=== PATIENT | male | born 1950 | race Caucasian/White ===

== ENCOUNTER 2021-06-04 22:33 | Inpatient (IN) | payer OTHER ==
[~2021-06-04] VITALS: Ht 180.3 cm; Wt 110.0 kg
--- NOTE | ~2021-06-04 | EMS ---
[address] [address] EMS Patient Care Report Name: TREY WOOD Room #: 215-P ADM IN M.R.#: [id number] Admission: 06/05/21 Attend Phys: Ellyn Adams MD Discharge: Date of : 46 Report #: [id number] THIS REPORT FOR: //name// Report Transmitted: 06/06/2021 14:55 EMS Care Summary [facility] [place] [id number] @ 06/04/2021 21:26 Incident Location [address] [place] [id number] Patient TREY WOOD Male, 71 Years 1950 Patient Address [address] [place] [id number] Patient History Stroke/CVA,Atrial Fibrillation, Patient Allergies No known allergies, Patient Medications None Reported, Chief Complaint Shortness of breath Disposition Transported No Lights/[place] Dispatch Reason Breathing Problem Transported To [facility] Narrative MEDIC 52 DISPATCHED TO PRIVATE RESIDENCE FOR A 76 YO MALE COMPLAINING OF SHORTNESS OF BREATH. PT WAS FIRST SEEN AOX4 AND SITTING IN A CHAIR RECLINED. LEAH MCKOY WAS FIRST ON SCENE AND PLACED THE PATIENT ON A NEBULIZER MASK WELL OBTAINING VITAL SIGNS AND A 12 LEAD. LEAH MCKOY STATED THE PT'S SPO2 [address] [address] EMS Patient Care Report Name: TREY WOOD Room #: 215-P ADM IN M.R.#: [id number] Admission: 06/05/21 Attend Phys: Ellyn Adams MD Discharge: Date of : 46 Report #: [id number] WAS IN THE MID 80'S ON ROOM AIR AND CAME UP TO LOW 90'S ON 8LPM OF O2. PT HAD A PATENT AIRWAY, LABORED AND TACHYPNEIC, SKIN WAS DIAPHORETIC. PT WAS THEN TRANSFERRED FROM CHAIR TO COT W/O [facility]. PT WAS THEN LOADED INTO THE AMBULANCE. ON AUSCULTATION PT HAD INSPIRATORY AND EXPIRATORY WHEEZES, PT WAS GIVEN A DUONEB TREATMENT. AN 18 G IV WAS ATTEMPTED IN THE PT RIGHT AC. MY PARTNER HOOKED THE PATIENT UP TO THE MONITOR. VITAL SIGNS AND A 12 LEAD WERE OBTAINED. PT STATED THE DUONEB TREATMENT HELPED WITH HIS SHORTNESS OF BREATH BUT IT WAS STILL PRESENT. PT WAS THEN GIVEN AN ALBUTEROL TREATMENT. PT WAS CONTINUOUSLY MONITORED EN ROUTE TO [facility]. PT STATED THE HE COULD BREATHE THROUGH HIS NOSE FOR THE FIRST TIME SINCE THIS EPISODE BEGAN. JUST BEFORE ARRIVAL PT STATED HE WAS FEELING A LITTLE BIT OF WHEEZING COMING BACK. PT WAS THEN GIVEN ANOTHER ALBUTEROL TREATMENT. RADIO REPORT WAS THEN CALLED IN TO THE ED. UPON ARRIVAL THE NURSE WAS GIVEN THE REPORT. PT WAS THEN TRANSFERRED FROM COT TO BED W/O [facility]. PT CARE WAS THEN TRANSFERRED OVER TO THE NURSING STAFF. MEDIC 52 CLEAR Initial Vitals @21:55P: 150,SpO2: 99, @21:56P: 104,SpO2: 100, @22:10P: 111,R: 23,EtCO2: 33,SpO2: 94, @22:25P: 131,R: 42,EtCO2: 32,SpO2: 94, @22:20P: 146,R: 39,EtCO2: 35,SpO2: 98, @22:00P: 144,SpO2: 100, @22:15P: 158,R: 60,EtCO2: 41,SpO2: 95, @22:02MI Suspected: false @22:17P: 168,R: 39,BP: 127/96,Pain: 0/10,GCS: 15,EtCO2: 35,SpO2: 88,Revised Trauma: 11, @21:58P: 167,R: 30,BP: 124/80,Pain: 0/10,GCS: 15,SpO2: 100,Revised Trauma: 11, @22:19P: 91,R: 38,BP: 130/73,Pain: 0/10,GCS: 15,EtCO2: 35,SpO2: 92,Revised Trauma: 11, Impression Shortness of breath Procedures @22:02 12-Lead ECG Response: UnchangedSucceeded @21:45 ALS Assessment Response: UnchangedSucceeded @22:02 IV Therapy - Saline Lock cc (20 ga) Site: Antecubital-Right Response: UnchangedFailed @PTAOxygen FlowRate: 8 Device: Nebulizer Response: ImprovedSucceeded @21:58 General Comments Response: Improved @22:20 Albuterol - 2.5 Milligrams (mg) - Nebulized Response: Improved @22:08 Albuterol - 2.5 Milligrams (mg) - Nebulized Response: Improved [address] [address] EMS Patient Care Report Name: TREY WOOD Room #: 215-P ADM IN M.R.#: [id number] Admission: 06/05/21 Attend Phys: Ellyn Adams MD Discharge: Date of : 46 Report #: [id number] Timeline GRILL PREP COOK,Oxygen FlowRate: 8 Device: Nebulizer Response: ImprovedSucceeded, 21:25,Call Received 21:,Psap Call 21:,Dispatched 21:29,En Route 21:40,On Scene 21:41,At Patient 21:45,ALS Assessment,Response: UnchangedSucceeded, 21:55,BP: / M,PULSE: 150,RR: R,SPO2: 99 Ox,ETCO2: ,BG: ,PAIN: ,GCS: , 21:56,BP: / M,PULSE: 104,RR: R,SPO2: 100 Ox,ETCO2: ,BG: ,PAIN: ,GCS: , 21:58,General Comments,Response: Improved 21:58,BP: 124/80 M,PULSE: 167,RR: 30 R,SPO2: 100 Ox,ETCO2: ,BG: ,PAIN: 0,GCS: 15, 22:00,Depart Scene 22:00,BP: / M,PULSE: 144,RR: R,SPO2: 100 Ox,ETCO2: ,BG: ,PAIN: ,GCS: , 22:02,IV Therapy - Saline Lock cc 20 ga Site: Antecubital-Right,Response: UnchangedFailed, 22:02,12-Lead ECG,Response: UnchangedSucceeded, 22:02,BP: / M,PULSE: ,RR: R,SPO2: Ox,ETCO2: ,BG: ,PAIN: ,GCS: , 22:08,Albuterol - 2.5 Milligrams (mg) - Nebulized,Response: Improved 22:10,BP: / M,PULSE: 111,RR: 23 R,SPO2: 94 Ox,ETCO2: 33 ,BG: ,PAIN: ,GCS: , 22:15,BP: / M,PULSE: 158,RR: 60 R,SPO2: 95 Ox,ETCO2: 41 ,BG: ,PAIN: ,GCS: , 22:17,BP: 127/96 M,PULSE: 168,RR: 39 R,SPO2: 88 Ox,ETCO2: 35 ,BG: ,PAIN: 0,GCS: 15, 22:19,BP: 130/73 M,PULSE: 91,RR: 38 R,SPO2: 92 Ox,ETCO2: 35 ,BG: ,PAIN: 0,GCS: 15, 22:20,Albuterol - 2.5 Milligrams (mg) - Nebulized,Response: Improved 22:20,BP: / M,PULSE: 146,RR: 39 R,SPO2: 98 Ox,ETCO2: 35 ,BG: ,PAIN: ,GCS: , 22:25,BP: / M,PULSE: 131,RR: 42 R,SPO2: 94 Ox,ETCO2: 32 ,BG: ,PAIN: ,GCS: , 22:26,At Destination 22:42,Transfer Patient 23:06,Call Closed Disclaimer v1.1 Copyright 2020 [employer] This EMS Care Summary contains data elements from the applicable legal record (which may be displayed differently). It is designed to provide pertinent information for the following purposes: continuity of care, clinical quality, and state data reporting. The complete legal record is available to ED staff and administrators of the receiving hospital in [employer] Patient Tracker. All data is provided "as is."
[~2021-06-04 22:33] MED LIST: ADULT LOW DOSE81 MG PO; ASPIRIN; COLACE100 MG PO; FAMOTIDINE20 MG PO; LIPITOR10 MG PO; MULTIVITAMINS PO
[2021-06-04 22:34] VITALS: BP 85/50
[2021-06-04 23:18] LABS: ABSOLUTE NEUTROPHILS 11.8 thou/uL (1.4-8.2); BASOPHILS 0.6 % (0.0-2.0); EOSINOPHILS 0.6 % (0.0-3.0); HEMATOCRIT 32.6 % (42.0-52.0); LYMPHOCYTES 15.8 % (24.0-44.0); MCH 32.3 pg (26.0-34.0); MCHC 33.8 g/dL (28.0-37.0); MCV 95.5 fL (80.0-100.0); MONOCYTES 3.6 % (1.0-8.0); PLATELET COUNT 293 thou/uL (150-400); POLYS 79.4 % (36.0-66.0); RBC 3.41 mil/uL (4.50-6.00); RDW 15.5 % (10.5-14.5); WBC 14.8 thou/uL (4.0-11.0)
[2021-06-04 23:33] LABS: CALCIUM 8.1 mg/dL (8.5-10.1); CREATININE 1.1 mg/dL (0.7-1.3); POTASSIUM 4.1 mmol/L (3.5-5.1)
[2021-06-04 23:43] LABS: ALBUMIN 2.5 g/dL (3.4-5.0); TOTAL BILIRUBIN 0.5 mg/dL (0.2-1.0); TOTAL PROTEIN 5.9 g/dL (6.4-8.2)
[2021-06-05 03:55] LABS: URINE BILIRUBIN NEGATIVE (Negative); URINE BLOOD 3+ (Negative); URINE CLARITY CLEAR; URINE COLOR YELLOW; URINE GLUCOSE-RANDOM* NEGATIVE (Negative); URINE KETONES NEGATIVE (Negative); URINE LEUKOCYTES-REFLEX NEGATIVE (Negative); URINE NITRITE-REFLEX NEGATIVE (Negative); URINE PROTEIN (DIPSTICK) 2+ (Negative); URINE SPECIFIC GRAVITY >= 1.030 (1.005-1.035); URINE UROBILINOGEN 0.2 E.U./dl (0.2-1.0)
[2021-06-05 03:58] VITALS: BP 94/60
[2021-06-05 04:13] LABS: BACTERIA-REFLEX None Seen /HPF (None Seen); CRYSTALS None Seen /LPF (None Seen); HYALINE CASTS 0-3 Few /LPF (None Seen); MUCUS 0-3 Light strn/LPF (None Seen); SQUAMOUS None Seen /LPF (0-3); TRANSITIONAL EPITHEL CELL 0-3 Few /LPF (None Seen); URINE RBC 3-10 Few /HPF (NONE SEEN); URINE WBC-REFLEX None Seen /HPF (0-5)
[2021-06-05 09:07] VITALS: BP 131/91
[2021-06-05 14:45] LABS: BE(vivo) -5.1 mmol/L (-2 to +3); HCO3 22.3 mmol/L (22.0-26.0); PCO2 51.7 mmHg (35.0-45.0); PO2 89.9 mmHg (80.0-100.0); pH 7.252 (7.360-7.450); sO2 95.5 % (92.0-98.0)
--- NOTE | 2021-06-05 14:53 | NUR ---
ATTEMPTED TO CALL HOSPITALIST FOR CRITICAL ABG RESULTS, NO ANSWER
[2021-06-05 15:39] VITALS: BP 131/91
[2021-06-05 17:13] VITALS: BP 116/80
[2021-06-05 18:06] LABS: BE(vivo) -3.4 mmol/L (-2 to +3); PCO2 40.6 mmHg (35.0-45.0); pH 7.351 (7.360-7.450); sO2 99.3 % (92.0-98.0)
[2021-06-05 21:03] VITALS: BP 114/58
[2021-06-06 00:25] LABS: HEMATOCRIT 29.2 % (42.0-52.0); HEMOGLOBIN 9.6 gm/dL (14.0-18.0); MCH 30.8 pg (26.0-34.0); MCHC 32.9 g/dL (28.0-37.0); MCV 93.8 fL (80.0-100.0); RBC 3.11 mil/uL (4.50-6.00); RDW 15.4 % (10.5-14.5); WBC 9.6 thou/uL (4.0-11.0)
[2021-06-06 00:45] VITALS: BP 97/60
[2021-06-06 00:48] LABS: CALCIUM 8.1 mg/dL (8.5-10.1); CREATININE 0.9 mg/dL (0.7-1.3); POTASSIUM 4.3 mmol/L (3.5-5.1)
[2021-06-06 04:27] VITALS: BP 98/64
[2021-06-06 07:00] VITALS: BP 101/63
--- NOTE | 2021-06-06 07:27 | EKG ---
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1950 Requested By: Scarlet Rashid Order Number: [id number] MD: Abad Mckoy Measurements Intervals [place] Rate: 151 P: GA: QRS: 49 QRSD: 80 T: 13 QT: 313 QTc: 497 Interpretive Statements Atrial fibrillation with rapid V-rate Low voltage, precordial leads Anteroseptal infarct, old Baseline wander in lead(s) V2 Compared to ECG 12/14/2009 15:43:08 Low QRS voltage now present Myocardial infarct finding now present Sinus rhythm no longer present Electronically Signed On 06-06-2021 7:26:57 CARDIOPULMONARY SUPERVISOR by Abad Mckoy [email or web address] <ELECTRONICALLY SIGNED> By: Abad Mckoy MD, FACC 06/06/21 0726 2313 Abad Mckoy MD, FAC /EPI
[2021-06-06 11:00] VITALS: BP 99/58
--- NOTE | 2021-06-06 11:16 | 2DMMODE ---
[facility] [place] [address] 2 D/M-MODE ECHOCARDIOGRAM Name: TREY WOOD Room #: 215-P ADM IN M.R.#: [id number] Admission: 06/05/21 Attend Phys: Sajan Lopez MD Discharge: Date of : 46 Report #: [id number] THIS REPORT FOR: cc: [facility] - Clinic physician unknown [facility] - Clinic physician unknown Teofilo Mendenhall MD [facility] ~ APPROVED REPORT Study performed: 06/06/2021 09:26:54 EXAM: Comprehensive 2D, Doppler, and color-flow Echocardiogram Patient Location: Bedside Room #: 215 Status: routine BSA: 2.28 HR: 108 bpm BP: 101/63 mmHg Rhythm: Atrial Fibrillation Other Information Study Quality: Technically Difficult Technically limited study due to body habitus, inability to position patient, patient is on bypap. Indications Congestive Heart Failure Dyspnea CAD Hypertension/HDD Recent Covid 19 Aortic Valve AoV Peak Keo.: 1.06 m/s AO Peak Gr.: 4.52 mmHg LVOT Max P.68 mmHg LVOT Max V: 0.82 m/s Left Ventricle The left ventricle is normal size. There is normal left ventricular wall thickness. The left ventricular systolic function is normal. The left ventricular ejection fraction is within the normal range. LVEF is 55-60%. This study is not technically sufficient to allow evaluation of the LV diastolic function due to atrial fibrillation. [facility] [address] [address] 2 D/M-MODE ECHOCARDIOGRAM Name: TREY WOOD Room #: 215-P ADM IN M.R.#: [id number] Admission: 06/05/21 Attend Phys: Sajan Lopez MD Discharge: Date of : 46 Report #: [id number] Right Ventricle Right ventricle is dilated. Right ventricle is hypokinetic. Atria Left atrium is at the upper limits of normal. Right atrium is dilated. Aortic Valve The aortic valve is normal in structure. No aortic regurgitation is present. There is no aortic valvular stenosis. Mitral Valve The mitral valve is normal in structure. There is no mitral valve regurgitation noted. No evidence of mitral valve stenosis. Tricuspid Valve The tricuspid valve is normal in structure. Trace tricuspid regurgitation. Unable to assess PA pressure. Pulmonic Valve Pulmonic valve is not well visualized. There is no pulmonic valvular regurgitation. Great Vessels The aortic root is normal in size. IVC is not well visualized. Pericardium There is no pericardial effusion. <Conclusion> The left ventricle is normal size. LVEF is 55-60%. This study is not technically sufficient to allow evaluation of the LV diastolic function due to atrial fibrillation. Right ventricle is dilated. Right ventricle is hypokinetic. Left atrium is at the upper limits of normal. Right atrium is dilated. The aortic valve is normal in structure. There is no mitral valve regurgitation noted. Trace tricuspid regurgitation. Unable to assess PA pressure. [facility] [address] [place] [address] 2 D/M-MODE ECHOCARDIOGRAM Name: TREY WOOD Room #: 215-P ADM IN M.R.#: [id number] Admission: 06/05/21 Attend Phys: Sajan Lopez MD Discharge: Date of : 46 Report #: [id number] The aortic root is normal in size. There is no pericardial effusion. <ELECTRONICALLY SIGNED> By: Teofilo Mendenhall MD, FACC 06/06/216 15 15 Teofilo Mendenhall MD, FACC /INF
[2021-06-06 15:00] VITALS: BP 104/67
--- NOTE | 2021-06-06 17:11 | NUR ---
PATIENT ADMITTED FOR DYSPNEA, DARREN, DEHYDRATION, AND LUNG MASS. CHART REVIEWED AND CASE DISCUSSED WITH CARE TEAM. CM MET WITH PT THIS DAY. DARYL AT PTS SIDE. CM ROLE INTRODUCED. 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 HE AMBULATES WITH ONE CRUTCH, AND USES A SHOWER CHAIR. HIS ASSIST PATIENT WITH PUTTING HIS SOCKS ON AND DRESSING. PTS REPORTS 24 STAIRS INSIDE THE HOME AND 1 STAIR OUTSIDE THE HOME. PT DOES HAVE OXYGEN AT HOME THROUGH [facility]. HE WAS USING [facility]. PT AND AGREEABLE TO RESUMING BOTH ONCE MEDICALLY STABLE AND INDICATED. PTS PCP IS Tiarra ROUSSEAU. CM FOLLOWING.
[2021-06-06 19:56] VITALS: BP 100/55
[2021-06-07 03:20] VITALS: BP 137/84
--- NOTE | 2021-06-07 04:03 | NUR ---
ASSUMED PT CARE AT 1900, ALERT AND ORIENTED. AFIB ON TELE, DENIES PAIN,MEDS GIVEN PER AUG, C/O DIZZINESS, VITAL SIGNS STABLE, BLOOD TINGED URINE NOTED, PT TACHYPNEIC, O2SATS STABLE, PLACED BACK ON BIPAP, ASSESSMENTS CHARTED, REMAINS ON ABX, WILL CONTINUE TO MONITOR
[2021-06-07 05:07] LABS: ABSOLUTE NEUTROPHILS 6.5 thou/uL (1.4-8.2); BASOPHILS 0.7 % (0.0-2.0); EOSINOPHILS 2.2 % (0.0-3.0); HEMATOCRIT 32.6 % (42.0-52.0); HEMOGLOBIN 10.8 gm/dL (14.0-18.0); LYMPHOCYTES 20.3 % (24.0-44.0); MCH 31.3 pg (26.0-34.0); MCHC 33.3 g/dL (28.0-37.0); MONOCYTES 6.4 % (1.0-8.0); PLATELET COUNT 272 thou/uL (150-400); POLYS 70.4 % (36.0-66.0); RBC 3.47 mil/uL (4.50-6.00); RDW 15.6 % (10.5-14.5); WBC 9.2 thou/uL (4.0-11.0)
[2021-06-07 07:00] VITALS: BP 129/81
[2021-06-07 12:00] VITALS: BP 116/73
--- NOTE | 2021-06-07 12:03 | NUR ---
PT IS NOT A CANDIDATE FOR [facility]. PT AND PTS AT SIDE AGREEABLE TO SKILLED SERVICES. PT HAS BEEN TO [facility] IN THE PAST. THEIR WISH IS NOT TO RETURN. THEY REPORT PTS ARE HOUSED ALONG WITH LTC PTS AND IT IS A DEPRESSING ENVIRONMENT. SKF LIST PROVIDED TO PT. ONCE CHOSEN FACILITY WILL SEND REFERRAL. CM FOLLOWING.
--- NOTE | 2021-06-07 13:42 | NUR ---
MRAJAN FROM [facility] OFFICE OF COMMUNITY CARE. FOR ASSIST WITH DC PLANNING, CALL PETRA AT [phone]. 2N CM JENNY UPDATED.
--- NOTE | 2021-06-07 13:48 | NUR ---
Pt wheeled to enterence in wheel chair by staff with personal belongings and discharge instructions and left hospital without incident in a private vehicle
[2021-06-07 15:00] VITALS: BP 134/81
--- NOTE | 2021-06-07 15:13 | NUR ---
CM SPOKE TO PT AND PTS AT BEDSIDE. NO CHOICE MADE AT THIS TIME FOR SKILLED FACLITY. PTS DAUGHTER WORKS AT [employer] HOWEVER PT REFUSING TO GO THERE. PTS AND DAUGHTER GOING TO VISIT A FEW CHOSEN FACILITIES TONIGHT AND IN THE AM. ONCE MAKE FINAL DECISIONS WILL SEND REFERRALS. CM FOLLOWING.
--- NOTE | 2021-06-07 18:30 | NUR ---
Pt A & O x4. Pt VS stable. Pt is on 4L of 02 per nasal cannula. Pt is a-fib on the tele. Pt is x 1 assist with ADLs. Pt has grace in place. Pt received medications as ordered. Pt worked with PT/OT this shift. Pt is able to make needs known
[2021-06-07 20:15] VITALS: BP 149/86
[2021-06-08 04:45] VITALS: BP 130/75
[2021-06-08 06:42] LABS: HEMATOCRIT 31.1 % (42.0-52.0); HEMOGLOBIN 10.5 gm/dL (14.0-18.0); MCH 31.4 pg (26.0-34.0); MCHC 33.8 g/dL (28.0-37.0); MCV 93.1 fL (80.0-100.0); RBC 3.34 mil/uL (4.50-6.00); RDW 15.3 % (10.5-14.5); WBC 8.7 thou/uL (4.0-11.0)
[2021-06-08 07:06] LABS: CALCIUM 8.1 mg/dL (8.5-10.1); CREATININE 0.7 mg/dL (0.7-1.3); POTASSIUM 3.2 mmol/L (3.5-5.1)
[2021-06-08 07:46] VITALS: BP 138/84
--- NOTE | 2021-06-08 08:25 | NUR ---
ALERT AND ORIENTED, DENIES PAIN, AFIB ON TELE, RATES CONTROLLED, ASSESSMENTS CHARTED, REMAINED ON 4L NC THIS SHIFT, MEDS GIVEN PER AUG, NO ACUTE DISTRESS NOTED, REPORT GIVEN TO DAY NURSE
[2021-06-08 11:28] VITALS: BP 106/73
--- NOTE | 2021-06-08 11:59 | NUR ---
CM MET WITH PT THIS DAY TO F/U ON CHOSEN SNF FACILITY. PT INFORMED HE AND HIS HAVE DECIDED THEY WOULD PREFER TO DC HOME AND RESUME [facility] IF THERAPY AND HIS CARE TEAM AGREE. HE IS AGREEABLE TO [facility] WELL. PAGED THERAPY TEAM AND AWAITING THERAPY REPORT. PT REPORTS HE HAS BEEN UP WALKING TWO TIMES THIS AM WITH HIS IV POLE AND BELIEVES HE WILL BE OKAY DISCHARGING HOME RATHER THAN SNF. HE REPORTS HIS WILL HELP CARE FOR HIM AND AVAILABLE 01/01. CM WILL CONTINUE TO FOLLOW.
--- NOTE | 2021-06-08 13:47 | NUR ---
SPOKE TO PT AND PTS AT BEDSIDE. BOTH AGREEABLE TO RETURN TO [facility] FOR SKILLED SERVICES. FAXED UPDATES TO [facility]. THEY WILL ACCEPT ONCE PT MEDIALLY STABLE TO DISCHARGE.
[2021-06-08 15:27] VITALS: BP 109/59
--- NOTE | 2021-06-08 18:19 | NUR ---
Pt A & O x4. Pt is a-fib on the tele. Pt VS stable. Pt is currently on 3-4 L of 02 per nasal cannula. Pt worked with PT/OT this shift. Pt received medications as ordered. Pt denies pain/discomfort. Pt is able to make needs known.
[2021-06-08 19:44] VITALS: BP 103/57
--- NOTE | 2021-06-08 21:24 | HC ---
[facility] [place] [address] CONSULTATION Name: TREY WOOD Room #: 215-P ADM IN M.R.#: [id number] Admission: 06/05/21 Attend Phys: Ellyn Adams MD Discharge: Date of : 46 Report #: [id number] THIS REPORT FOR: cc: [facility] - Clinic physician unknown [facility] - Clinic physician unknown Abdirashid Bustos MD ~ DATE OF SERVICE: 06/07/2021 INFECTIOUS DISEASES CONSULTATION REASON FOR CONSULTATION: I was asked to evaluate concerning streptococcal bacteremia and pneumonia. HISTORY OF PRESENT ILLNESS: The patient is a 71-year-old diagnosed with COVID-19 pneumonia in 04/2021. He was treated at [facility]. Subsequently discharged to senior living unit for several weeks and has been home for about 5 days. He presents now with acute dyspnea without chest pain, fever or chills. He has had intermittent cough with minimal sputum production. No hemoptysis. He does have underlying history of atrial fibrillation, hypertension, coronary artery disease, stroke with left hemiparesis, and anxiety. REVIEW OF SYSTEMS: Denies any chest pain or palpitations. No nausea, vomiting or diarrhea. Reasonable urine output. No change in his left hemiparesis. No seizure activity noted. A 14-point review was otherwise negative. ALLERGIES: None known. MEDICATIONS: As noted on his MAR, which were reviewed. PAST MEDICAL HISTORY: Hernia x 2 repair, sinus surgery, right lower extremity fracture, status post repair, ORIF, CVA with left hemiparesis, anxiety, hypertension, hyperlipidemia, atrial fibrillation. FAMILY HISTORY: No report of tuberculosis. SOCIAL HISTORY: Nonsmoker. Occasional alcohol use. No HIV risk factors. PHYSICAL EXAMINATION: GENERAL: He was afebrile and hemodynamically stable. He is alert, cooperative, and pleasant. He is in no acute distress. He is on oxygen per nasal cannula. He has left sided hemiparesis, upper and lower extremities. SKIN: Without rash or decubitus. No palpable adenopathy. HEENT: Eyes without scleral icterus. Mouth without mucositis. NECK: Supple. LUNGS: Coarse breath sounds posteriorly. [facility] [address] [place] [address] CONSULTATION Name: TREY WOOD Room #: 215-P [facility] IN M.R.#: [id number] Admission: 06/05/21 Attend Phys: Ellyn Adams MD Discharge: Date of : 46 Report #: [id number] HEART: Regular, without murmur, gallop or rub. ABDOMEN: Soft and nontender. No hepatosplenomegaly or mass appreciated. GENITAL: Not performed. RECTAL: Not performed. EXTREMITIES: Without clubbing, cyanosis or edema. PSYCHIATRIC: Mood without anxiety. LABORATORY DATA: Reviewed. MICROBIOLOGY: Reviewed. IMAGING: Chest x-ray reviewed. IMPRESSION: A 71-year-old with recent COVID-19 pneumonia, presents now with basilar infiltrates, edema versus infection, Strep viridans bacteremia, indeterminate yet if this is a contaminant or true pathogen; atrial fibrillation with rapid ventricular response and elevated BNP, likely component of congestive heart failure in the setting of underlying hypertension, hyperlipidemia. RECOMMENDATION: We will continue broad antibiotic coverage as we await repeat blood cultures. Treat atrial fibrillation and congestive heart failure. Follow serial chest x-rays. <ELECTRONICALLY SIGNED> By: Abdirashid Bustos MD 06/08/214 0406 Abdirashid Bustos MD /nt
--- NOTE | 2021-06-09 04:00 | NUR ---
PT IS ALERT AND ORIENTED X4. LUNGS DIMINISHED. ON 3 LITERS NASAL CANULA. WEARS BIPAP AT 35 PERCENT ON AND OFF AT TIMES. ABDOMEN IS ROUND BOWEL SOUNDS ACTIVE. DENIES ANY PAIN ISSUES.LLAMAS CATH TO DD WITH JUAN MANUEL URINE PRESENT. LEFT HAND IS FACID. CALL LIGHT WITHIN REACH AND ONGOING NURSING CARE. NO ISSUES OR CONCERNS NOTED AT THIS TIME.
[2021-06-09 04:32] VITALS: BP 130/80
[2021-06-09 08:00] VITALS: BP 129/74
[2021-06-09] MEDS ORDERED: SERTRALINE HCL100 MG PO (10:22)
[2021-06-09 12:00] VITALS: BP 102/54
[2021-06-09 16:00] VITALS: BP 105/63
--- NOTE | 2021-06-09 16:44 | NUR ---
CM SPOKE TO [facility] THIS DAY. ALSO FAXED UPDATES THERAPY TODAY. THEY HAVE SUBMITTED FOR AUTH. ALSO FAXED UPDATES TO [facility] AND ANTICIPATE DC IN THE COUPLE OF DAYS TO SNF.
--- NOTE | 2021-06-09 19:13 | NUR ---
AT THE BEGINNING OF THE SHIFT THIS PATIENT WAS ON BIPAP O2 SAT UPPER 90'S. PATIENT WAS SWITCHED TO NC AT 2LPM'S O2 SAT REMAINED IN THE UPPER 90'S. PATIENT BECAME ANXIOUS AND ASKED FOR THE BIPAP TO BE PUT BACK ON. THIS AFTERNOON PATIENTS SPOUSE ARRIVED AND WAS ABLE TO HELP THE PATIENT FOR WITH HIS ANXIETY ALLOWING THE PATIENT TO GO BACK TO NC INITALLY AT 4LPM 100% O2 SAT. REDUCED THE NC TO 3 LPM O2 SAT REMAINED IN THE UPPER 90'S.
[2021-06-09 19:40] VITALS: BP 122/72
[2021-06-10 04:19] VITALS: BP 128/74
[2021-06-10 08:13] VITALS: BP 102/68
[2021-06-10 09:38] VITALS: BP 102/68
[2021-06-10 10:32] LABS: CALCIUM 8.3 mg/dL (8.5-10.1); CREATININE 0.7 mg/dL (0.7-1.3); POTASSIUM 3.5 mmol/L (3.5-5.1)
[2021-06-10 12:48] VITALS: BP 106/70
[2021-06-10 17:11] VITALS: BP 115/68
--- NOTE | 2021-06-10 19:50 | NUR ---
PATIENT SAT UP IN THE CHAIR, AMBULATED WITH PT OUT IN THE [place]. NO PAIN. CALL LIGHT WITHIN REACH, WILL CONTINOUS MONITORING.
[2021-06-10 20:00] VITALS: BP 123/68
[2021-06-11 04:00] VITALS: BP 123/63
[2021-06-11 04:20] LABS: CALCIUM 8.4 mg/dL (8.5-10.1); CREATININE 0.8 mg/dL (0.7-1.3); POTASSIUM 3.4 mmol/L (3.5-5.1)
[2021-06-11 17:00] VITALS: BP 143/79
--- NOTE | 2021-06-11 17:50 | NUR ---
Pt has been A&Ox4, VS stable and afebrile throughout shift. Pt sat in chair while eating breakfast and ambulated to bathroom with x1 assist. Pt has been resting in bed. No complaints of pain. No current concerns. Continue to monitor.
[2021-06-11 20:19] VITALS: BP 134/82
--- NOTE | 2021-06-12 02:43 | NUR ---
PATIENT SITTING IN RECLINER AT START OF SHIFT. ASSISTED BACK TO HIS BED. PT HAS LIMITED FUNCTION OF HIS LEFT SIDE DUE TO HX OF CVA. STARTED NEW 20G IV TO R FA. PATIENT STATES THAT HE IS FEELING PRETTY GOOD TONIGHT. HE IS AAOX4 AND FOLLOWING ALL COMMANDS. VSS. LLAMAS IN PLACE. COMPLIANT WITH MEDICATION AND TREATMENT. WILL CONTINUE TOMONITOR FOR CHANGES IN PATIENT STATUS/
[2021-06-12 04:36] VITALS: BP 137/77
[2021-06-12 07:37] VITALS: BP 105/72
[2021-06-12 16:39] VITALS: BP 127/84
--- NOTE | 2021-06-12 18:48 | NUR ---
Pt has been A&0x4 and afebrile. With exertion pt becomes short of breath and tachycardic. Pt is up x1 assist from bed but needs extra support when getting up from chair. Shannon was DC'd in AM. Pt has been using the urinal and has good output. No complaints of pain. No current concerns. Continue to monitor.
[2021-06-12 20:22] VITALS: BP 143/90
[2021-06-13 04:30] VITALS: BP 125/78
--- NOTE | 2021-06-13 04:42 | NUR ---
PATIENT AAOX4. PATIENT IS NOW VOIDING PER URINAL. STATES INCREASED HIS O2 TO 3L HE STATES THAT HE WAS NOT FEELING THE OXYGEN COMING THROUGH. HIS O2 SAT WAS 91% ON 2L. WHEN INCREASED TO 3L HIS O2 IS 94%. STATES THAT HE IS READY FOR DISCHARGE. HE IS COMPLAINT WITH ALL MEDICATIONS. ALL SAFEY PRECAUTIONS ARE IN PLACE. WILL CONTINUE TO MONITOR.
[2021-06-13 09:00] VITALS: BP 129/67
--- NOTE | 2021-06-13 10:53 | NUR ---
Assess due to length of stay. admit with pneumonia, afib. Hx recent COVID in April. Wt obese, BMI 33. Eating >75% of meals. Note likely dc to SNF soon. Presents low nutrition risk
--- NOTE | 2021-06-13 11:17 | NUR ---
CLINICAL UPDATES SENT TO [facility]. WILL ACCEPT IF PT MEDICALLY STABLE TO DISCHARGE THIS DAY. RESENDING AUTHRubén NATHAN WILL CALL THIS CM WHEN RECEIVED.
[2021-06-13 11:25] VITALS: BP 131/69
[2021-06-13] MEDS ORDERED: BACLOFEN 10MG T10 MG PO (13:42)
[2021-06-13] MEDS ORDERED: IPRAT-ALBUT 0.5-3 ML INH (13:42)
[2021-06-13] MEDS ORDERED: METOPROLOL SUCC25 M1 PO (13:42)
[2021-06-13] MEDS ORDERED: ELIQUIS5 MG PO (13:42)
[2021-06-13] MEDS ORDERED: TORSEMIDE10 MG PO (13:43)
[2021-06-13] MEDS ORDERED: CARDIZEM CD120 MG PO (13:43)
[2021-06-13] MEDS ORDERED: PULMICORT0.5 MG/21 INH (13:44)
[2021-06-13] MEDS ORDERED: AUGMENTIN 875-1 EACH PO (13:50)
--- NOTE | 2021-06-13 16:45 | NUR ---
Pt was discharged at 1530. Pt was A&0x4, VS stable and afebrile throughout shift. No complaints of pain during shift or at time of discharge. Pt worked with PT and ambulated half way down hallway. Pt HR went up to 140s during ambulation. HR returned to baseline once pt was at rest. Pt was provided discharge education and stated that he understood the education that was provided. No current concerns.
== END 2021-06-13 17:09 | DRG 871 ==
LOC: ER 22:33 → EROBS 06-05 03:42 → 2N 06-05 03:42
PROVIDERS: Emergency Medicine; Hospitalist; Internal Medicine; Nurse Practitioner; Nurse Practitioner Family; ADMIT Hospitalist; ATTEND Hospitalist
DX: A40.8 Other streptococcal sepsis (principal); J18.9 Pneumonia, unspecified organism; J96.21 Acute and chronic respiratory failure with hypoxia; I48.21 Permanent atrial fibrillation; I50.30 Unspecified diastolic (congestive) heart failure; I69.354 Hemiplegia and hemiparesis following cerebral infarction affecting left non-dominant side; Z20.822 Contact with and (suspected) exposure to COVID-19; I25.10 Atherosclerotic heart disease of native coronary artery without angina pectoris; F41.9 Anxiety disorder, unspecified; E78.5 Hyperlipidemia, unspecified; I07.1 Rheumatic tricuspid insufficiency; E78.00 Pure hypercholesterolemia, unspecified; E87.6 Hypokalemia; I11.0 Hypertensive heart disease with heart failure; Z79.899 Other long term (current) drug therapy; Z79.01 Long term (current) use of anticoagulants; Z86.16 Personal history of COVID-19; Z95.5 Presence of coronary angioplasty implant and graft
CPT/HCPCS: 10081; 10194